=== PATIENT | female | born 1970 | race Caucasian/White ===

== ENCOUNTER → 2017-03-16 | Outpatient (CLI) | payer BC ==
[2017-03-16 12:47] LABS: BUN/Creatinine Ratio 14.7; Calcium 9.7 mg/dL (8.5-10.1); Magnesium 2.6 mg/dL (1.6-2.6); Potassium 3.8 mmol/L (3.5-5.1)
== END | disposition home or self-care (01) ==
LOC: LAB 09:44
PROVIDERS: ATTEND Internal Medicine Cardiovascular Disease
DX: I10 Essential (primary) hypertension (principal); E83.42 Hypomagnesemia; E03.9 Hypothyroidism, unspecified; D51.9 Vitamin B12 deficiency anemia, unspecified
CPT/HCPCS: 36415; 80048; 82607; 83735; 84439; 84443

== ENCOUNTER → 2017-04-12 | Outpatient (CLI) | payer BC | END | disposition home or self-care (01) | LOC: LAB 08:48 | PROVIDERS: ATTEND Obstetrics & Gynecology | DX: N95.1 Menopausal and female climacteric states (principal); E03.9 Hypothyroidism, unspecified | CPT/HCPCS: 36415; 82670; 83001; 83002; 84403; 84443 ==

== ENCOUNTER → 2017-10-20 | Outpatient (CLI) | payer BC ==
[2017-10-20 12:35] LABS: Basophils # (auto) 0 uL; Eosinophils # (auto) 0.1 uL; Eosinophils % (auto) 1.8 % (0.0-7.0); Hematocrit 40.1 % (36.0-46.0); Hemoglobin 13.7 g/dL (12.2-16.2); Lymphocytes # (auto) 1.5 uL; Lymphocytes % (auto) 35.1 % (10.0-50.0); Mean Corpuscular Hemoglobin 30.7 pg (28.0-32.0); Mean Corpuscular Hgb Conc. 34.1 g/dL (32.0-36.0); Mean Corpuscular Volume 89.9 fL (80.0-100.0); Monocytes # (auto) 0.3 uL; Monocytes % (auto) 6.3 % (0.0-12.0); Neutrophils # (auto) 2.5 uL; Neutrophils % (auto) 55.8 % (37.0-80.0); Nucleated Red Blood Cells % 0.6 %; Platelet Count (auto) 305 10^3/uL (140-450); Red Blood Cells 4.46 10^6/uL (4.0-5.20); Red Cell Distribution Width 13.1 % (11.8-14.3); White Blood Cell 4.4 10^3/uL (4.4-10.8)
[2017-10-20 12:44] LABS: Urine Blood Negative /uL (Negative); Urine Specific Gravity 1.036 (1.001-1.035)
[2017-10-20 13:20] LABS: Albumin 4.3 g/dL (3.4-5.0); BUN/Creatinine Ratio 28.1; Bilirubin, Direct 0.2 mg/dL (0-0.2); Bilirubin, Total 0.8 mg/dL (0.2-1.0); Calcium 9.4 mg/dL (8.5-10.1); Potassium 3.9 mmol/L (3.5-5.1)
[2017-10-20 20:12] LABS: T3 Total 1.05 ng/mL (0.60-1.81)
[2017-10-20 20:24] LABS: Free T4 (Free Thyroxine) 1.15 ng/dL (0.89-1.76)
== END | disposition home or self-care (01) ==
LOC: LAB 08:35
PROVIDERS: ATTEND Internal Medicine Cardiovascular Disease
DX: E78.00 Pure hypercholesterolemia, unspecified (principal); D64.9 Anemia, unspecified; E03.9 Hypothyroidism, unspecified; E11.9 Type 2 diabetes mellitus without complications; E55.9 Vitamin D deficiency, unspecified; K74.1 Hepatic sclerosis; D51.9 Vitamin B12 deficiency anemia, unspecified; I10 Essential (primary) hypertension; N39.0 Urinary tract infection, site not specified
CPT/HCPCS: 36415; 80048; 80061; 80076; 81003; 82306; 82607; 83036; 84436; 84439; 84443; 84480; 85025

== ENCOUNTER → 2017-12-01 | Outpatient (CLI) | payer BC ==
[2017-12-01 14:30] LABS: Basophils # (auto) 0 uL; Basophils % (auto) 0.7 % (0.0-2.0); Eosinophils # (auto) 0.1 uL; Hematocrit 37.9 % (36.0-46.0); Lymphocytes # (auto) 1.9 uL; Lymphocytes % (auto) 28.5 % (10.0-50.0); Mean Corpuscular Hemoglobin 30.4 pg (28.0-32.0); Mean Corpuscular Hgb Conc. 34.4 g/dL (32.0-36.0); Mean Corpuscular Volume 88.5 fL (80.0-100.0); Monocytes # (auto) 0.4 uL; Monocytes % (auto) 5.8 % (0.0-12.0); Neutrophils # (auto) 4.2 uL; Platelet Count (auto) 288 10^3/uL (140-450); Red Blood Cells 4.28 10^6/uL (4.0-5.20); Red Cell Distribution Width 12.8 % (11.8-14.3); White Blood Cell 6.6 10^3/uL (4.4-10.8)
[2017-12-01 15:24] LABS: BUN/Creatinine Ratio 24.7; Bilirubin, Total 0.4 mg/dL (0.2-1.0); Calcium 8.9 mg/dL (8.5-10.1); Potassium 3.3 mmol/L (3.5-5.1); Total Protein 7.4 g/dL (6.4-8.2)
[2017-12-01 15:26] LABS: Follicle Stimulating Hormone 6.8 IU/L (SEE BELOW); Leuteinizing Hormone 3.3 IU/L
== END | disposition home or self-care (01) ==
LOC: LAB 14:04
PROVIDERS: ATTEND Obstetrics & Gynecology
DX: N93.9 Abnormal uterine and vaginal bleeding, unspecified (principal); N95.1 Menopausal and female climacteric states; R53.83 Other fatigue; E11.9 Type 2 diabetes mellitus without complications; I10 Essential (primary) hypertension; E78.00 Pure hypercholesterolemia, unspecified
CPT/HCPCS: 36415; 80053; 82670; 83001; 83002; 84403; 85025

== ENCOUNTER → 2018-03-21 | Outpatient (CLI) | payer BC | END | disposition home or self-care (01) | LOC: Rad HDHVI 10:10 | PROVIDERS: ATTEND Internal Medicine Cardiovascular Disease | DX: I87.2 Venous insufficiency (chronic) (peripheral) (principal); I47.1 Supraventricular tachycardia; I10 Essential (primary) hypertension; E11.9 Type 2 diabetes mellitus without complications; E03.9 Hypothyroidism, unspecified | CPT/HCPCS: 93970 ==

== ENCOUNTER → 2019-01-10 | Outpatient (CLI) | payer BC ==
[2019-01-10 09:46] LABS: Follicle Stimulating Hormone 87.64 IU/L (SEE BELOW); Leuteinizing Hormone 46.5 IU/L
== END | disposition home or self-care (01) ==
LOC: LAB 08:26
PROVIDERS: ATTEND Obstetrics & Gynecology
DX: N95.1 Menopausal and female climacteric states (principal)
CPT/HCPCS: 36415; 82670; 83001; 83002; 84403; 84443